=== PATIENT | female | born 1930 | race Caucasian/White ===

== ENCOUNTER 2019-04-26 09:51 | Inpatient (IN) ==
[2019-04-21 16:02] LABS: Appearance,Urine CLEAR; Bacteria,Urine 0 /hpf (0); Bilirubin,Urine NEG (NEG); Color,Urine YELLOW; Culture Indicated,Urine NO; Glucose,Urine (UA) NEGATIVE (NEG); Ketones,Urine NEG (NEG); Leukocyte Esterase,Urine 25 /uL (NEG); Mucus,Urine FEW /hpf (0); Nitrate,Urine NEG (NEG); Protein,Urine NEG (NEG); Specific Gravity,Urine 1.016 (1.000-1.035); Urine Blood NEG mg/dL (<0.03); Urine RBC < 1 /hpf (0-1); Urine Squamous Epithelial Cell < 1 /hpf (0-4); Urine Transitional Epi Cells < 1 /hpf (0-2); Urine WBC 5 /hpf (0-4); Urobilinogen,Urine NEG (NEG)
[2019-04-21 17:01] LABS: Basophils # (Auto) 0.04 K/mcL (0.00-0.30); Basophils % (Auto) 0.5 % (0.0-2.0); Eosinophils # (Auto) 0.13 K/mcL (0.00-0.70); Eosinophils % (Auto) 1.7 % (0.0-7.0); Granulocytes % (Auto) 57.8 % (38.0-78.0); Hematocrit 45.5 % (34.1-44.9); Hemoglobin 14.9 g/dL (11.2-15.7); Lymphocytes # (Auto) 2.58 K/mcL (1.50-4.80); Lymphocytes % (Auto) 33.2 % (15.5-49.0); Mean Cell Volume 97.8 fL (80.0-100.0); Mean Corpuscular HGB Conc 32.7 g/dL (31.0-36.0); Mean Platelet Volume 12.1 fL (7.4-10.4); Monocytes # (Auto) 0.53 K/mcL (0.10-0.90); Monocytes % (Auto) 6.8 % (1.0-12.0); Platelet Count 180 K/mcL (140-440); RBC 4.65 M/mcL (3.59-5.38); Red Cell Distribution Width 12.8 % (11.5-14.5); WBC 7.8 K/mcL (4.50-11.00)
[2019-04-21 17:12] LABS: Blood Urea Nitrogen 15 mg/dl (8-23); Carbon Dioxide 27 mmol/L (22-30); Chloride 98 mmol/L (96-108); Glomerular Filtration Rate 57; Glucose 98 mg/dL (70-105)
[2019-04-21 17:44] LABS: Prothrombin Time 13.3 sec (11.9-14.5)
[~2019-04-26 09:51] MED LIST: 0.9 % SODIUM CHLORIDE 9 ML, KETOROLAC 30 MG, ROPIVACAINE HCL/PF 49.5 ML, EPINEPHrine 0.... IJ SCH; ACETAMINOPHEN 500 MG TABLET PO SCH; CELECOXIB 200 MG CAPSULE PO SCH; PREGABALIN 75 MG CAPSULE PO SCH; ceFAZolin 2 GM in DEXTROSE 5% IN WATER 50 ML IV SCH; oxyCODONE 10 MG TAB.ER.12H PO SCH
[2019-04-26] MEDS ORDERED: SCOPOLAMINE 1 PATCH PATCH TOPICAL PRN (10:00)
[2019-04-26] MEDS ORDERED: IPRATROPIUM/ALBUTEROL 3 ML AMPUL.NEB NEB PRN ×2 (10:00→15:50)
[2019-04-26] MEDS ORDERED: TRANEXAMIC ACID 1,000 MG/10 ML VIAL IV ONE (14:45)
[2019-04-26] MEDS ORDERED: SUCCINYLCHOLINE 20 MG/ML ML IV ONE (14:45)
[2019-04-26] MEDS ORDERED: PHENYLEPHRINE 10 MG/ML VIAL IV ONE (14:45)
[2019-04-26] MEDS ORDERED: KETAMINE 100 MG/ML ML IV ONE (14:45)
[2019-04-26] MEDS ORDERED: DEXAMETHASONE 10 MG/ML VIAL IV ONE (14:45)
[2019-04-26] MEDS ORDERED: GLYCOPYRROLATE 0.2 MG/ML VIAL IV ONE (14:45)
[2019-04-26] MEDS ORDERED: ONDANSETRON 4 MG/2 ML VIAL IV ONE (14:45)
[2019-04-26] MEDS ORDERED: LIDOCAINE HCL/PF 100 MG/5 ML SYRINGE IV ONE (14:45)
[2019-04-26] MEDS ORDERED: ePHEDrine 50 MG/ML AMPUL IV ONE (14:45)
[2019-04-26] MEDS ORDERED: PROPOFOL 200 MG/20 ML VIAL IV ONE (14:45)
--- NOTE | 2019-04-26 14:53 | Discharge Summary ---
Ortho Discharge - [facility] - Patient Instructions Diet: Regular Diet Activity: activity as tolerated, weight bearing as tolerated Total Knee Protocol: For Total Knee: Start ROM MAYCOL with stationary bike or rocking chair. Work on gaining full extension of knee. Posterior dislocation precautions provided. Hip abductor strengthening and gait training instructions provided. Apply Cryocuff as instructed. Dressing Care: May shower in 2 days - Follow Up Plan Follow Up Appointments: Pierce Ryan PA-C [Physician Print And Pattern Designer] - 05/11/19 1:10 pm Disposition: Home, Self-Care Prognosis: Good Rehab Potential: Good I certify that the patient requires SNF services: Yes Overall status at discharge: patient is progressing back to baseline - Orders For Discharge Prescriptions: HYDROcodone/APAP 10/325MG [[place] 10-325Mg] 1 - 2 tab PO Q4H PRN #60 tab PRN Reason: Pain Prescription Printed
[2019-04-26] MEDS ORDERED: GENTAMICIN SULFATE 800 MG/20 ML VIAL IR ONE (15:15)
[2019-04-26] MEDS ORDERED: FLUMAZENIL 0.1 MG/ML ML IV PRN (15:50)
[2019-04-26] MEDS ORDERED: fentaNYL 100 MCG/2 ML VIAL IV PRN (15:50)
[2019-04-26] MEDS ORDERED: MEPERIDINE 25 MG/ML SYRINGE IV PRN (15:50)
[2019-04-26] MEDS ORDERED: LACTATED RINGERS 250 ML IV PRN (15:50)
[2019-04-26] MEDS ORDERED: diphenhydrAMINE 50 MG/ML VIAL IV PRN (15:50)
[2019-04-26] MEDS ORDERED: ONDANSETRON 4 MG/2 ML VIAL IV PRN ×2 (15:50→16:01)
[2019-04-26] MEDS ORDERED: PROMETHAZINE 25 MG/ML VIAL IV PRN (15:50)
[2019-04-26] MEDS ORDERED: NALOXONE HCL 0.4 MG/ML VIAL IV PRN (15:50)
[2019-04-26] MEDS ORDERED: LACTATED RINGERS 1,000 ML IV SCH (16:00)
[2019-04-26] MEDS ORDERED: MAGNESIUM HYDROXIDE 30 ML ORAL.SUSP PO PRN (16:01)
[2019-04-26] MEDS ORDERED: BISACODYL 10 MG SUPP.RECT PR PRN (16:01)
[2019-04-26] MEDS ORDERED: FLEETS ADULT ENEMA PR PRN (16:01)
[2019-04-26] MEDS ORDERED: BENZOCAINE/MENTHOL 1 LOZENGE PO PRN (16:01)
[2019-04-26] MEDS ORDERED: POLYETHYLENE GLYCOL 3350 17 GM PACKET PO PRN (16:01)
[2019-04-26] MEDS ORDERED: KETOROLAC 15 MG/ML VIAL IV PRN (16:01)
[2019-04-26] MEDS ORDERED: TRANEXAMIC ACID 1,000 MG/10 ML VIAL IV SCH (16:01)
[2019-04-26] MEDS ORDERED: HYDROmorphone 2 MG/ML VIAL IV PRN (16:01)
[2019-04-26] MEDS ORDERED: [UNRECOGNIZED DRUG - OTHER] PO PRN (16:05)
[2019-04-26] MEDS ORDERED: SENNOSIDES PO PRN (16:05)
--- NOTE | 2019-04-26 16:06 | Brief Operative Note ---
Date of procedure: 04/26/19 Pre-op diagnosis: Right hip djd severe Post-op diagnosis: same Procedure: Right total hip Grafts/Implants: Yes Anesthesia: GETA Surgeon: Yogesh Eason Certified Nutritionist: Pierce Ryan Estimated blood loss (cc): 120 Specimens Removed/Pathology: none sent Condition: stable Disposition: PACU
--- NOTE | 2019-04-26 16:27 | Discharge Summary ---
Ortho Discharge - [facility] - Patient Instructions Diet: Regular Diet Activity: activity as tolerated, weight bearing as tolerated Total Hip Protocol: Follow activity instructions as provided by Physical Therapy. Dressing Care: May shower in 2 days - Follow Up Plan Follow Up Appointments: Pierce Ryan PA-C [Physician Saloon Keeper] - 05/11/19 1:10 pm Disposition: Xfer SNF Prognosis: Good Rehab Potential: Good I certify that the patient requires SNF services: Yes Overall status at discharge: patient is progressing back to baseline - Orders For Discharge Prescriptions: HYDROcodone/APAP 10/325MG [[place] 10-325Mg] 1 - 2 tab PO Q4H PRN #60 tab PRN Reason: Pain Prescription Printed Additional Discharge Orders: Physical Therapy at Discharge - [facility] Location: None Selected CPM Discharge Order Location: None Selected Toilet Riser Discharge Order Location: None Selected Walker Location: None Selected
--- NOTE | 2019-04-26 16:32 | Operative Note ---
DATE OF OPERATION: 04/26/2019 PREOPERATIVE DIAGNOSIS: Right hip degenerative arthritis. POSTOPERATIVE DIAGNOSIS: Right hip degenerative arthritis. PROCEDURE: Right total hip arthroplasty using cemented stem and Ovalo components. SURGEON: Yogesh Eason M.D. FOOTWEAR FACTORY WORKER: Pierce Ryan PA-C. The PA's assistance was required for the safe and efficient completion of the entire case. This provider's expertise and technical skill were required throughout the case. The PA assisted with preoperative coordination, intraoperative retraction, wound closure, dressing and splint application, as well as postoperative documentation and care coordination. ANESTHESIA: General LMA anesthesia COMPLICATIONS: None. ESTIMATED BLOOD LOSS: About 150 mL. IMPLANTS: A size 6 cemented stem with a 54 acetabulum and 36 mm neutral neck length head made of ceramic. COMPLICATIONS: None. DESCRIPTION OF PROCEDURE: The patient was brought to the operating room, put to sleep with general LMA anesthesia. Once asleep, the patient had the right hip sterilely prepped and draped in the usual sterile fashion. We made a superior approach to the hip after a timeout had been performed, confirming the operative site by initials, consent form, and x-rays. Once this was all done, we were able to then dissect down to the capsule and were able to place a Charnley retractor. We then released the superior capsule to the hip, and because of the tightness of the hip the neck had to be cut in place. This was then able to be removed from the acetabulum. We then reamed up to the size 54, implanted a 54 cup with a 30 mm screw for extra support. A 10 degree hooded liner posterior inferiorly was positioned with a highly cross-linked polyethylene from [employer] for a 36 mm ball. Once this was accomplished, we were able to then prepare the femur. The central canal was identified. We were able to then lateralize the implant and broach up to the size of 6. We trialed a 6 with a standard neck length. This was about 2 mm longer. We then countersunk after x-rays. After we took the x-ray to confirm position, we then were able to seat the implant further into the stem by 3 to 4 mm. This was reamed to neck length to make the leg lengths equal. We then tested the hip. This was able to be reduced with a 36 mm ball with a standard neck length. We cemented into place a size 6 stem. Once cement was hardened, we then repositioned the 36 mm ball with a neutral neck length. This was very stable through the full arc motion. It was not able to be dislocated and we were able to then check leg lengths. Leg lengths were symmetric and equal. The patient tolerated this well. We irrigated, closed the fascial layer with #1 Stratafix, closed the skin with Stratafix and adhesive closure with 2-0 Vicryl. The patient tolerated this well. There were no complications. Blood loss was about 120 mL. RBJorje:darryl Job ID: [id number] Doc ID: [id number] Yogesh Eason MD
--- NOTE | 2019-04-26 17:15 | XRay Report ---
HISTORY: Postop right hip arthroplasty FINDINGS: There is a well-positioned right total hip prosthesis. No fracture is present. There is arthritis in the left hip with spurs forming along the margin of the femoral head and mild joint space narrowing. Moderate arthritis is present in the facets in the lower lumbar spine. IMPRESSION: Well-positioned right hip prosthesis Interpreted and Authenticated by: Ron Trujillo 04/26/19
[2019-04-26] MEDS: LACTATED RINGERS 1,000 ML IV SCH ×2 (17:27→21:23)
[2019-04-26] MEDS ORDERED: TEMAZEPAM 15 MG CAPSULE PO PRN (21:00)
[2019-04-26] MEDS: SENNOSIDES 1 TABLET PO SCH (21:19)
[2019-04-26] MEDS: DOCUSATE SODIUM 100 MG CAPSULE PO SCH (21:19)
[2019-04-26] MEDS: ASPIRIN 325 MG ENTERIC COATED TABLET PO SCH (21:19)
[2019-04-26] MEDS: ceFAZolin 1 GM VIAL IV SCH (21:19)
[2019-04-26] MEDS: VIT A,C & E/LUTEIN/MINERALS TABLET PO SCH (21:20)
[2019-04-26] MEDS: 0.9 % SODIUM CHLORIDE 10 ML SYRINGE IV SCH (21:20)
[2019-04-26] MEDS: HYDROcodone/APAP 10/325MG TABLET PO PRN (21:20)
[2019-04-27] MEDS: LACTATED RINGERS 1,000 ML IV SCH ×3 (03:15→20:21)
[2019-04-27] MEDS: HYDROcodone/APAP 10/325MG TABLET PO PRN ×2 (04:24→20:17)
[2019-04-27] MEDS: 0.9 % SODIUM CHLORIDE 10 ML SYRINGE IV SCH ×3 (04:25→20:15)
[2019-04-27] MEDS: ceFAZolin 1 GM VIAL IV SCH (05:30)
[2019-04-27] MEDS: LEVOTHYROXINE 75 MCG TABLET PO SCH (07:49)
--- NOTE | 2019-04-27 08:00 | Orthopedic Progress Note ---
Subjective Patient information: Note initiated : 04/27/19 at 7:58 am Service Date, if different from initiated Date: [] Patient: Medina Jacinto 88 y/o F admitted on 04/26/19 for Right Total Hip Arthroplasty. Chief Complaint: [no sob no cp but feels light headed. didnt ambulate secondary to dizziness.] Objective Vital signs: Vital Signs Temp Pulse Resp BP Pulse Ox 04/27/19 07:30 73 04/27/19 02:33 97.2 F 75 16 98/56 90 04/26/19 22:59 97.1 F 81 14 100/54 94 04/26/19 20:16 97.4 F 78 16 94/56 97 04/26/19 19:16 83 84/52 96 04/26/19 18:46 95 H 108/62 99 04/26/19 18:20 70 16 106/58 88 L 04/26/19 18:05 73 16 110/60 93 04/26/19 18:01 98 04/26/19 17:50 65 16 125/59 96 04/26/19 17:35 81 14 124/55 93 04/26/19 17:20 97.2 F 92 H 14 130/59 97 04/26/19 17:08 97.1 F 73 14 132/49 100 04/26/19 16:53 79 17 131/47 100 04/26/19 16:38 67 13 142/56 98 04/26/19 16:23 97.8 F 70 12 138/54 96 04/26/19 10:35 98.0 F 70 18 149/79 96 Intake and Output 04/26/19 04/27/19 04/27/19 21:59 05:59 13:59 Intake Total 1893 240 Output Total 1000 Balance 893 240 Intake: IV 393 Lactated Ringers 1,000 ml @ 100 393 mls/hr IV .Q10H [facility] Rx#: [id number] Oral 240 IV - Manual Only 1500 Output: Urine Catheter Amount 700 Straight 700 Estimated Blood Loss 300 Other: Urine Appearance Straight Clear Urine Color Straight Bright Yellow Weight 176 lb Intake & Output: Intake & Output 04/26/19 04/27/19 04/27/19 21:59 05:59 13:59 Intake Total 1893 240 Output Total 1000 Balance 893 240 Weight 176 lb Intake: IV 393 Lactated Ringers 1,000 ml @ 100 393 mls/hr IV .Q10H [facility] Rx#: [id number] Oral 240 IV - Manual Only 1500 Output: Urine Catheter Amount 700 Straight 700 Estimated Blood Loss 300 Other: Urine Appearance Straight Clear Urine Color Straight Bright Yellow Incision: Yes healing Incision clean and dry: Yes Dressing: Yes clean Weight bearing status: as tolerated Neurological exam IM: Yes alert, Yes neurovascular intact (plan on another day stay and social services aide consult) - Labs CBC & BMP: 04/27/19 06:09 04/21/19 14:22 Labs: Orthopedic Labs 04/21/19 14:22 PT 13.3 INR 1.0 APTT 30 04/27/19 04/21/19 06:09 14:23 Hgb 14.9 Hct 31.4 L 45.5 H
[2019-04-27] MEDS ORDERED: FLU VACC QS2019-20(6MOS UP)/PF 60 MCG/0.5 ML SYRINGE IM ONE (10:00)
[2019-04-27] MEDS: VIT A,C & E/LUTEIN/MINERALS TABLET PO SCH ×2 (10:12→20:13)
[2019-04-27] MEDS: ASPIRIN 325 MG ENTERIC COATED TABLET PO SCH ×2 (10:12→20:13)
[2019-04-27] MEDS: MULTIVIT,THER IRON,CA,FA & MIN 1 TABLET PO SCH (10:12)
[2019-04-27] MEDS: MAGNESIUM OXIDE 400 MG TABLET PO SCH (10:12)
[2019-04-27] MEDS: ACETAMINOPHEN 325 MG TABLET PO PRN ×2 (10:13→17:56)
[2019-04-27] MEDS: DOCUSATE SODIUM 100 MG CAPSULE PO SCH ×2 (10:13→20:13)
[2019-04-27] MEDS: SENNOSIDES 1 TABLET PO SCH (20:13)
--- NOTE | 2019-04-28 06:42 | Orthopedic Progress Note ---
Subjective Patient information: Note initiated : 04/28/19 at 6:39 am Service Date, if different from initiated Date: [] Patient: Medina Jacinto 88 y/o F admitted on 04/26/19 for Right Total Hip Arthroplasty. Chief Complaint: [Still needing to have snf and no cp and no sob] Objective Vital signs: Vital Signs Temp Pulse Resp BP Pulse Ox 04/28/19 04:13 97.7 F 73 18 101/52 91 04/27/19 22:59 98.4 F 79 18 111/51 93 04/27/19 18:48 18 94 04/27/19 18:43 98.1 F 78 18 106/54 94 04/27/19 16:00 98.1 F 88 18 122/55 94 04/27/19 12:15 82 04/27/19 12:00 98.1 F 76 18 107/58 90 04/27/19 08:08 87 18 77/44 94 04/27/19 08:04 98.1 F 80 16 131/71 95 04/27/19 07:30 87 18 94 Intake and Output 04/27/19 04/28/19 04/28/19 21:59 05:59 13:59 Intake Total 240 300 Balance 240 300 Intake: Oral 240 300 Other: Meal Dinner Percent of Meal Consumed 100% Feeding Ability Assist with Tray Set Up # Voids 1 1 Weight 184 lb 3 oz Intake & Output: Intake & Output 04/27/19 04/28/19 04/28/19 21:59 05:59 13:59 Intake Total 240 300 Balance 240 300 Weight 184 lb 3 oz Intake: Oral 240 300 Other: Meal Dinner Percent of Meal Consumed 100% Feeding Ability Assist with Tray Set Up # Voids 1 1 Incision: Yes healing Incision clean and dry: Yes Dressing: Yes clean Weight bearing status: full Neurological exam IM: Yes alert, Yes oriented X3, Yes neurovascular intact Extremities exam IM: Yes pedal edema, Yes Foot pink and warm - Allied Health Allied health notes reviewed: PT (dc to snf in am) - Labs CBC & BMP: 04/27/19 06:09 04/21/19 14:22 Labs: Orthopedic Labs 04/21/19 14:22 PT 13.3 INR 1.0 APTT 30 04/27/19 04/21/19 06:09 14:23 Hgb 14.9 Hct 31.4 L 45.5 H
[2019-04-28] MEDS: HYDROcodone/APAP 10/325MG TABLET PO PRN (08:17)
[2019-04-28] MEDS: ASPIRIN 325 MG ENTERIC COATED TABLET PO SCH ×2 (08:17→22:01)
[2019-04-28] MEDS: DOCUSATE SODIUM 100 MG CAPSULE PO SCH ×2 (08:18→22:01)
[2019-04-28] MEDS: MAGNESIUM OXIDE 400 MG TABLET PO SCH (08:18)
[2019-04-28] MEDS: LEVOTHYROXINE 75 MCG TABLET PO SCH (08:18)
[2019-04-28] MEDS: VIT A,C & E/LUTEIN/MINERALS TABLET PO SCH ×2 (08:18→22:01)
[2019-04-28] MEDS: MULTIVIT,THER IRON,CA,FA & MIN 1 TABLET PO SCH (08:18)
[2019-04-28] MEDS: 0.9 % SODIUM CHLORIDE 10 ML SYRINGE IV SCH ×3 (08:18→22:12)
[2019-04-28] MEDS: LACTATED RINGERS 1,000 ML IV SCH ×2 (08:21→18:34)
[2019-04-28] MEDS: ACETAMINOPHEN 325 MG TABLET PO PRN (22:01)
[2019-04-28] MEDS: SENNOSIDES 1 TABLET PO SCH (22:01)
[2019-04-29] MEDS: LACTATED RINGERS 1,000 ML IV SCH (04:13)
[2019-04-29] MEDS: 0.9 % SODIUM CHLORIDE 10 ML SYRINGE IV SCH (04:16)
[2019-04-29] MEDS: HYDROcodone/APAP 10/325MG TABLET PO PRN ×2 (04:23→12:57)
[2019-04-29] MEDS: ASPIRIN 325 MG ENTERIC COATED TABLET PO SCH (08:37)
[2019-04-29] MEDS: MULTIVIT,THER IRON,CA,FA & MIN 1 TABLET PO SCH (08:37)
[2019-04-29] MEDS: DOCUSATE SODIUM 100 MG CAPSULE PO SCH (08:37)
[2019-04-29] MEDS: VIT A,C & E/LUTEIN/MINERALS TABLET PO SCH (08:37)
[2019-04-29] MEDS: MAGNESIUM OXIDE 400 MG TABLET PO SCH (08:37)
[2019-04-29] MEDS: LEVOTHYROXINE 75 MCG TABLET PO SCH (08:37)
== END 2019-04-29 13:15 | DRG 470 ==
LOC: MEDSUR 09:51
PROVIDERS: ADMIT Orthopaedic Surgery; ATTEND Orthopaedic Surgery